=== PATIENT | male | born 1995 | race Caucasian/White ===

== ENCOUNTER 2017-05-15 10:26 | Emergency (ER) | payer BC ==
[2017-05-15 10:40] VITALS: BP 134/80
[2017-05-15] MEDS ORDERED: Amoxicillin/Clavulanate K 875-125 MG Tab PO ONE (11:40)
[2017-05-15] MEDS ORDERED: Diphtheria,Pertussis(Acell),Tetanus Vaccine 0.5 ML SDV IM ONE (11:40)
--- NOTE | 2017-05-15 11:46 | EDM.PDOC ---
ED HPI GENERAL MEDICAL PROBLEM - General Chief Complaint: Bite:Animal, Insect Stated Complaint: NEED RABIES SHOT Time Seen by Provider: 05/15/17 11:21 Source of Information: Reports: Patient History Limitations: Reports: No Limitations - History of Present Illness INITIAL COMMENTS - FREE TEXT/NARRATIVE: Patient is a 22-year-old male who presents ED complaining of a raccoon bite to the left medial thigh. This occurred last night after the patient shot the raccoon and picked it up. Raccoon was not thus provoked bite wound. Raccoon was shot . They still have the carcass. Patient has minimal pain to the bite wound. No drainage. Minimal swelling present. Tetanus status is thought to be up-to-date as of eighth grade. Patient has no past medical history and is currently taking no medications. Left Upper Leg Pain Score (Numeric/FACES): 1 - Related Data Allergies Allergy/AdvReac Type Severity Reaction Status Date / Time No Known Allergies Allergy Verified 05/15/17 10:35 Home Meds: Home Meds Amoxicillin/Clavulanate K [Augmentin 875 MG/125 MG] 1 tab PO Q12HR #14 tablet [Rx] ED ROS GENERAL - Review of Systems Review Of Systems: ROS reveals no pertinent complaints other than HPI. ED EXAM, ANIMAL BITE - Physical Exam Exam: See Below Exam Limited By: No Limitations General Appearance: Alert, WD/WN, No Apparent Distress Ears: Hearing Grossly Normal Nose: Normal Inspection Throat/Mouth: Normal Voice, No Airway Compromise Neck: Normal Inspection, Supple Respiratory/Chest: No Respiratory Distress, No Accessory Muscle Use Cardiovascular: Normal Peripheral Pulses, Regular Rate, Rhythm Peripheral Pulses: 2+: Radial (L) Extremities: Other (Single puncture wound to the left inner distal thigh. Mild redness present. Minimal swelling or pain. No purulent drainage noted. ) Neurological: Alert, Oriented, CN II-XII Intact, Normal Cognition, No Motor/ Sensory Deficits Psychiatric: Normal Affect, Normal Mood Skin Exam: Normal Color, Warm/Dry Course - Vital Signs Last Recorded V/S: Last Vital Signs Temp 98.4 F 05/15/17 10:35 Pulse 88 05/15/17 10:35 Resp BP 134/80 05/15/17 10:35 Pulse Ox 99 05/15/17 10:35 - Orders/Labs/Meds Orders: Active Orders 24 hr Category Date Time Status Vaccines to be Administered [RC] PER UNIT ROUTINE Care 05/15/17 11:40 Active Meds: Medications Discontinued Medications Generic Name Dose Route Start Last Admin Trade Name Soraida PRN Reason Stop Dose Admin Amoxicillin/Clavulanate Potassium 1 tab 05/15/17 11:40 05/15/17 12:11 Augmentin 875 Mg/125 Mg PO 05/15/17 11:41 1 tab ONETIME ONE Administration Diphtheria/Tetanus/Acell Pertussis 0.5 ml 05/15/17 11:40 05/15/17 12:09 Adacel IM 05/15/17 11:41 0.5 ml .ONCE ONE Administration - Re-Assessments/Exams Free Text/Narrative Re-Assessment/Exam: Ordered augmentin and adacel. I have contacted a local auto rental clerk at [facility]. They will call back in the next few minutes. Patient has the carcass of the raccoon. Bite wound was provoked since the patient did shoot it and picked it up. Raccoon was still alive live and decided to bite him. I'm questioning starting rabies prophylactic treatment. Raccoon's have a high risk for rabies exposure. Wanted to clarify if the patient has the carcass that testing can be conducted within this 10 day time frame to determine if the raccoon has rabies are not. If present will start treatment. 05/15/17 12:[address] Wilson Green Chain Operator at [facility]. Advised to have the patient drive the corpse to [place] and drop off at the [facility] for testing. Shipping fees are not covered only testing. I spoke with Didi with [facility]. They will be open until 1700 hrs central time and again at 0800 hrs tomorrow morning. Will discharge patient home with instructions as documented. Departure - Departure Time of Disposition: 12:58 Disposition: Home, Self-Care 01 Condition: Good Clinical Impression: Contact with and suspected exposure to rabies Raccoon bite Qualifiers: Encounter type: initial encounter Qualified Code(s): W55.51XA - Bitten by raccoon, initial encounter - Discharge Information Prescriptions: Amoxicillin/Clavulanate K [Augmentin 875 MG/125 MG] 1 tab PO Q12HR #14 tablet Instructions: Animal Bite, [id number] Referrals: PCP,None [Primary Care Provider] - Forms: ED Department Discharge, ED Return to Work/School Form Additional Instructions: Take the full course of antibiotic as prescribed. Monitor for any worsening symptoms concerning for infection. Take tylenol and ibuprofen in alternating fashion for pain. Take the raccoon to the [facility] to test for rabies today or tomorrow morning. Results of the testing will be completed tomorrow. If positive for rabies treatment is required. Return to the E.D. to initiate treatment. You have a 7 to 10 window to start this treatment. Division of Laboratory Services - [address] [place] [address], [address] Didi is the medicare contact specialist. - My Orders Last 24 Hours: My Active Orders 05/15/17 11:40 Vaccines to be Administered [RC] PER UNIT ROUTINE - Assessment/Plan Last 24 Hours: My Active Orders 05/15/17 11:40 Vaccines to be Administered [RC] PER UNIT ROUTINE
== END 2017-05-15 13:23 | disposition home or self-care (01) ==
LOC: JD.ED 10:26
DX: S71.152A Open bite, left thigh, initial encounter (principal); Z23 Encounter for immunization; W55.51XA Bitten by raccoon, initial encounter
CPT/HCPCS: 90471; 90715; 99283; A9270